=== PATIENT | female | born 1960 | race Hispanic/Latino ===

== ENCOUNTER → 2024-11-15 | Day surgery (SDC) | payer OTHER ==
[~2024-11-15] MED LIST: CALCIUM500 MG PO; FENTANYL CITRATE/PF 100MCG/2 ML INJ ONE; GINKGO BILOBA40 M1 PO; LIDOCAINE HCL 2% LOCAL INJ 5 ML SDV VIAL INJ ONE; MIDAZOLAM HCL 2 MG/2 ML VIAL ONE; OMEGA 3 FISH O1 EACH PO; OMEPRAZOLE40 MG PO; ONDANSETRON HCL INJ 2MG/ML 2ML 2 MG/ML VIAL ONE; PROPOFOL IV EMULSION 10 MG/ML 20 ML VIAL ONE; VITAMIN D310 MCG PO; [UNRECOGNIZED DRUG - OTHER] PO
[2024-11-15] MEDS: LACTATED RINGER'S 1,000 ML ONE (10:31)
[2024-11-15 12:15] VITALS: BP 116/70; PULSE 52; RESP 16; TEMP 97.5; O2SAT 100
== END | disposition home or self-care (01) ==
LOC: OR 09:34
PROVIDERS: ATTEND Internal Medicine Gastroenterology
DX: K29.50 Unspecified chronic gastritis without bleeding (principal); K21.00 Gastro-esophageal reflux disease with esophagitis, without bleeding; Z01.810 Encounter for preprocedural cardiovascular examination
CPT/HCPCS: 43239; 93005; J2003; J2250; J2405; J2470; J2704; J3010; J7121

== ENCOUNTER → 2024-12-23 | Outpatient (REF) | payer BC, OTHER ==
[~2024-12-23] MED LIST changes: +DIATRIZOATE MEGL/DIATRIZOA SOD 30 ML BTL PO ONE; -FENTANYL CITRATE/PF 100MCG/2 ML INJ ONE; +IOPAMIDOL 370 MG/ML 100 ML INFUS..BTL INJ ONE; -LIDOCAINE HCL 2% LOCAL INJ 5 ML SDV VIAL INJ ONE; -MIDAZOLAM HCL 2 MG/2 ML VIAL ONE; -ONDANSETRON HCL INJ 2MG/ML 2ML 2 MG/ML VIAL ONE; -PROPOFOL IV EMULSION 10 MG/ML 20 ML VIAL ONE
[2024-12-23 16:17] LABS: EST GLOMERULAR FILTRATION RATE 82.0 ML/MIN (>=60)
== END ==
LOC: CT 15:42
PROVIDERS: ATTEND Nurse Practitioner
DX: R10.31 Right lower quadrant pain (principal)
CPT/HCPCS: 36415; 74177; 82565; 84520; Q9963; Q9967